=== PATIENT | female | born 1985 | race Caucasian/White ===

== ENCOUNTER 2017-06-24 05:36 | Inpatient (IN) | payer MEDICAID ==
[2017-06-24] VITALS (19 sets, daily range): BP systolic 108–137; BP diastolic 53–84; PULSE 57–97; TEMP 97.2–97.9
[~2017-06-24] VITALS: Ht 160.1 cm; Wt 107.3 kg
[~2017-06-24 05:36] MED LIST: BENADRYL50 MG PO; MOTRIN 600600 MG/TAB PO; MOTRIN 800800 MG/TAB PO; PERCOCET 325 MG1 TA2 PO; PRENATAL; PRENATAL1 TA1 PO; PRILOSEC 20MG20 MG PO; REGLAN 10MG10 MG/TAB PO; TYLENOL 325MG325 MG PO; ZANTAC 7575 MG
[2017-06-24] MEDS ORDERED: UNISOM25 MG PO (06:34)
[2017-06-24] MEDS ORDERED: NORMODYNE100 MG PO (06:35)
[2017-06-24 06:40] LABS: BASO % 0.2 % (0.0-2.0); EOS # 0.1 (0.0-0.7); EOS % 0.7 % (0-4.0); GRAN # 8.5 (1.4-6.5); GRAN % 68.2 % (42.2-75.2); HEMATOCRIT 35.6 % (37.0-47.0); HEMOGLOBIN 12.3 g/dl (12.5-16.0); LYMPH # 3.1 (1.2-3.4); LYMPH % 24.6 % (20.0-51.0); MEAN CELL VOLUME 86 fl (80.0-100.0); MEAN CORPUSCULAR HEMOGLOBIN 30 pg (27.0-31.0); MEAN CORPUSCULAR HGB CONC 35 g/dl (33.0-37.0); MEAN PLATELET VOLUME 12.1 fl (7.4-10.4); MONO # 0.7 (0.1-0.6); MONO % 5.8 % (1.7-9.3); PLATELET COUNT 231 K/mm3 (130-400); RED BLOOD COUNT 4.16 M/mm3 (4.10-5.30); REDCELL DISTRIBUTION WIDTH-CV 13.1 % (11.5-14.5)
[2017-06-25 01:00] VITALS: BP 118/70; PULSE 70; TEMP 98
[2017-06-25 08:30] VITALS: BP 128/67; PULSE 91; TEMP 98.3
[2017-06-25 16:40] VITALS: BP 128/78; PULSE 82; TEMP 97.7
[2017-06-25 21:00] VITALS: BP 137/79; PULSE 100; TEMP 97.9
[2017-06-26 08:45] VITALS: BP 125/70; PULSE 92; TEMP 98.3
[2017-06-26] MEDS ORDERED: IBU600 MG PO (09:15)
[2017-06-26] MEDS ORDERED: PERCOCET 325 MG1 TA2 PO (09:16)
== END 2017-06-26 12:05 | disposition home or self-care (01) | DRG 765 ==
LOC: OB 05:36 → LDR 07:18 → OB 06-26 12:05 → LDR 07-01 17:04
PROVIDERS: Obstetrics & Gynecology
PROC: 10D00Z1 Extraction of Products of Conception, Low, Open Approach (ICD-10-PCS; principal; 2017-06-24)
DX: O34.211 Maternal care for low transverse scar from previous cesarean delivery (principal); O10.92 Unspecified pre-existing hypertension complicating childbirth; N85.8 Other specified noninflammatory disorders of uterus; O99.824 Streptococcus B carrier state complicating childbirth; Z3A.39 39 weeks gestation of pregnancy; Z37.0 Single live birth
CPT/HCPCS: J0171; J0690; J1885; J2175; J2270; J2370; J2405; J2590; J3010; J7120

== ENCOUNTER → 2019-09-17 | Outpatient (CLI) | payer MEDICAID ==
[~2019-09-17] MED LIST changes: +IBU600 MG PO; +NORMODYNE100 MG PO; +TYLENOL 500MG500 MG PO; +UNISOM25 MG PO; +ZOFRAN 4MG T4 MG/TAB PO; +ZOLOFT 50MG50 MG PO
== END ==
LOC: COL.LAB
DX: Z20.828 Contact with and (suspected) exposure to other viral communicable diseases (principal)

== ENCOUNTER 2019-09-20 21:02 | Outpatient (CLI) | payer MEDICAID ==
[~2019-09-20] VITALS: Ht 160 cm; Wt 101.8 kg
[~2019-09-20 21:02] MED LIST changes: -TYLENOL 500MG500 MG PO; -ZOFRAN 4MG T4 MG/TAB PO; -ZOLOFT 50MG50 MG PO
--- NOTE | 2019-09-20 21:10 | NUR ---
G5L3 at 39 weeks and 3 days arrives to hospital with complaint of contractions every 5 minutes. Pt has had 3 previous sections. Pt reports good movement, denies vaginal bleeding or LOF. Pt reports headache for the last 3 days that has not improved with tylenol. Pt also reports increased swelling in hands and feet. Pt oriented to room, call light within reach, bed in low and locked position. US and toco explained and applied. Vital signs obtained. Admission assessment started. SVE /-3, head felt as presenting part, membranes intact. Plan of care reviewed with patient.
[2019-09-20 21:30] VITALS: BP 135/85; PULSE 79
--- NOTE | 2019-09-20 21:30 | NUR ---
3 late decelerations down to 125 bpm noted after contraction. FHR baseline [address] Mariee on unit reviewed strip. Pt repositioned to wedge left.
[2019-09-20] MEDS ORDERED: TYLENOL 500MG500 MG PO (21:36)
[2019-09-20 22:00] VITALS: BP 132/73; PULSE 76
--- NOTE | 2019-09-20 22:15 | NUR ---
SVE unchanged from previous exam. Pt visibly uncomfortable during contractions. Will recheck again after another hour.
[2019-09-20 22:30] VITALS: BP 130/74; PULSE 85
[2019-09-20 23:00] VITALS: BP 148/82; PULSE 96
--- NOTE | 2019-09-20 23:20 | NUR ---
SVE unchanged over 2 hours. Pt agreeable to discharge plan. Return precautions reviewed and discharge instructions reviewed. Pt verbalized understanding. Pt seen ambulating off unit at 2340.
[2019-09-20 23:30] VITALS: BP 150/84; PULSE 85
[2019-09-21] MEDS ORDERED: ZOFRAN 4MG T4 MG/TAB PO (15:09)
[2019-09-21] MEDS ORDERED: ZOLOFT 50MG50 MG PO (15:10)
== END 2019-09-20 23:40 | disposition home or self-care (01) ==
LOC: LDRO 21:02 → LDR 21:02 → LDRO 23:40
DX: O62.9 Abnormality of forces of labor, unspecified (principal); Z3A.39 39 weeks gestation of pregnancy
CPT/HCPCS: OP

== ENCOUNTER 2019-09-21 14:05 | Inpatient (IN) | payer OTHER, MEDICAID ==
[~2019-09-21] VITALS: Ht 160 cm; Wt 104.1 kg
[2019-09-21] VITALS (17 sets, daily range): BP systolic 121–139; BP diastolic 72–88; PULSE 66–100; TEMP 98–98.1
[~2019-09-21 14:05] MED LIST changes: +TYLENOL 500MG500 MG PO
--- NOTE | 2019-09-21 14:30 | NUR ---
Pt here for scheduled repeat c/section. Pt to room 209 and oriented. Pt to [facility], explained. Consents signed. G5L3, 39.4 weeks gestation. Pt states baby is active. Pt was sent over from the [facility] after appt today, pt 3cm and having contractions. IV started to left wrist x 1 attempt. Blood drawn from site and then LR infusing without difficulty. Assessment complete. Pt with hx of marijuana use. UDS obtained. 1530:Adele [employer]GR[employer]INE[employer] called and updated. Pre-op orders received.
[2019-09-21] MEDS ORDERED: ZOFRAN 4MG T4 MG/TAB PO (15:09)
[2019-09-21] MEDS ORDERED: ZOLOFT 50MG50 MG PO (15:10)
[2019-09-21 15:20] LABS: BASO % 0.2 % (0.0-2.0); EOS # 0.1 (0.0-0.7); EOS % 0.6 % (0-4.0); GRAN % 70.8 % (42.2-75.2); HEMATOCRIT 37.3 % (37.0-47.0); HEMOGLOBIN 12.6 g/dl (12.5-16.0); LYMPH # 2.7 (1.2-3.4); LYMPH % 21.1 % (20.0-51.0); MEAN CELL VOLUME 85 fl (80.0-100.0); MEAN CORPUSCULAR HEMOGLOBIN 29 pg (27.0-31.0); MEAN CORPUSCULAR HGB CONC 34 g/dl (33.0-37.0); MEAN PLATELET VOLUME 11.8 fl (7.4-10.4); MONO # 0.9 (0.1-0.6); MONO % 6.8 % (1.7-9.3); PLATELET COUNT 225 K/mm3 (130-400); RED BLOOD COUNT 4.39 M/mm3 (4.10-5.30); REDCELL DISTRIBUTION WIDTH-CV 12.3 % (11.5-14.5)
--- NOTE | 2019-09-21 16:20 | NUR ---
Pt ambulates to OR.
[2019-09-21 16:23] LABS: TRICYCLIC ANTIDEPRESS URINE NEGATIVE
[2019-09-22 01:16] VITALS: BP 125/69; PULSE 65; TEMP 98.2
[2019-09-22] MEDS ORDERED: PERCOCET 325 MG1 TA2 PO (07:11)
[2019-09-22] MEDS ORDERED: IBU600 MG PO (07:11)
--- NOTE | 2019-09-22 08:07 | NUR ---
Initial visit; Parents thanked Pharmacy Salesperson for offering congratulations for the of their daughter and God's blessing for their family.
[2019-09-22 08:20] VITALS: BP 130/80; PULSE 82; TEMP 97.6
[2019-09-22 11:59] VITALS: BP 139/82; PULSE 77; TEMP 97.5
--- NOTE | 2019-09-22 15:13 | NUR ---
Commanding Officer [employer] responded to consult for patient and infant. MISSY met with patient and her , Tesfaye (ph#[phone]) to review resources and supports. Patient gave MISSY permission to speak with her with Tesfaye in the room. Patient lives with Tesfaye and their three other children ages 5, 4, and 2. Patient reports they have a 16 year old who is visiting his mother at this time. Patient is a stay at home mom and Tesfaye works at the [employer]. Patient plans to use formula and has an appointment set up with [facility]. Patient reports they have money to purchase formula at time of discharge. Patient reports they have all needed supplies for new infant and deny any concerns about returning home. SW addressed positive UDS for THC. Patient tested positive on 03/02/19 and upon admission. Patient states she stopped using in February but used again recently to cope with contractions she was having. Patient states between February and now she did not use. SW also addressed history of narcotic use. Patient states this was years ago when she was 18 and has not abused narcotics since. Patient does report that she has anxiety and takes medication. Patient does not currently see a therapist but was receiving services at one point in time from [facility]. Patient states she was frustrated with them because she would see someone different each time she came in. MISSY provided [facility] Resource Guide which included contact information for Mal[facility]. MISSY offered to make appointment for patient but she declined. Patient states she will look at their website and follow up to make an appointment. Patient reports her family and Tesfaye's family all live in [place]. Tesfaye states they have a lot of friends and feel supported. Tesfaye also advised he has access to "[employer]" which is through his employer. Tesfaye reports they have three visits covered and can call to access mental health and other services as needed. MISSY collaborated the above information to Nery PARKER. MISSY made a report to [facility] (intake #[id number]) for positive UDS for THC.
[2019-09-22 16:24] VITALS: BP 134/72; PULSE 86; TEMP 98.5
[2019-09-22 20:45] VITALS: BP 124/74; PULSE 81; TEMP 97.8
[2019-09-23 07:15] VITALS: BP 132/84; PULSE 72; TEMP 97.6
--- NOTE | 2019-09-23 10:59 | NUR ---
1020 DISCHARGE INSTRUCTIONS REVIEWED WITH PATIENT. PATIENT VERBALIZED UNDERSTANDING. 1030 ALL PERSONAL BELONGINGS GATHERED FROM PATIENT ROOM. PATIENT LEFT AMBULATORY AND IN NO APPARENT DISTRESS. PATIENT ACCOMPANIED BY SPOUSE AND THIS RN.
== END 2019-09-23 10:30 | disposition home or self-care (01) | DRG 787 ==
LOC: OB 14:05
PROVIDERS: ADMIT Obstetrics & Gynecology
PROC: 10D00Z1 Extraction of Products of Conception, Low, Open Approach (ICD-10-PCS; principal; 2019-09-21)
DX: O34.211 Maternal care for low transverse scar from previous cesarean delivery (principal); O99.354 Diseases of the nervous system complicating childbirth; G43.909 Migraine, unspecified, not intractable, without status migrainosus; O77.0 Labor and delivery complicated by meconium in amniotic fluid; O34.83 Maternal care for other abnormalities of pelvic organs, third trimester; N83.02 Follicular cyst of left ovary; O99.62 Diseases of the digestive system complicating childbirth; K21.9 Gastro-esophageal reflux disease without esophagitis; O99.214 Obesity complicating childbirth; E66.9 Obesity, unspecified; O16.4 Unspecified maternal hypertension, complicating childbirth; O99.344 Other mental disorders complicating childbirth; F41.9 Anxiety disorder, unspecified; Z37.0 Single live birth; Z3A.39 39 weeks gestation of pregnancy
CPT/HCPCS: J0690; J1885; J2250; J2370; J2405; J2590; J7120